=== PATIENT | female | born 1970 | race Caucasian/White ===

== ENCOUNTER 2017-07-03 12:26 | Inpatient (IN) | payer OTHER ==
[2017-07-03 13:20] VITALS: BMI 27.3
--- NOTE | 2017-07-03 15:03 | HP ---
COWS - Scale Resting Pulse: 0= [place] 80 or Below Sweatin=Flushed/Facial Moisture Restless Observation: 3= Extraneous Movement Pupil Size: 2= Moderately Dilated Bone or Joint Aches: 2= Severe Diffuse Aches Runny Nose/ Eye Tearin= Runny Nose/Eyes GI Upset > 30mins: 3= Vomiting/Diarrhea Tremor Observation: 2= Slight Tremor Visible Yawning Observation: 2= >3x During Session Anxiety or Irritability: 2=Irritable/Anxious Goose Flesh Skin: 0=Smooth Skin COWS Score: 20 CIWA Score - CIWA Score Nausea/Vomitin Muscle Tremors: 3 Anxiety: 3 Agitation: 3 Paroxysmal Sweats: 2 Orientation: 0-Oriented Tacttile Disturbances: 2-Mild Itch/Numbness/Burn Auditory Disturbances: 2-Mild Harshness/Frighten Visual Disturbances: 1-Very Mild Sensitivity Headache: 2-Mild CIWA-Ar Total Score: 21 Admission ROS S - HPI Chief Complaint: i need help to stop using heroin,alcohol and xanax,seeking detox, Allergies/Adverse Reactions: Allergies Allergy/AdvReac Type Severity Reaction Status Date / Time clonidine Allergy Severe Difficulty Verified 07/03/17 14:55 Breathing haloperidol [From Haldol] AdvReac Verified 07/03/17 14:55 History of Present Illness: this 46 years old female with heorin,alcohol and xanax dependence,last treatment [facility] in 02/25 seizure last 6months ago 12/26 syncope htn asthma longest period of sobriety 3 and half years Exam Limitations: No Limitations - Ebola screening Have you traveled outside of the country in the last 21 days: No Have you had contact with anyone from an Ebola affected area: No Have you been sick,other than usual withdrawal symptoms: No Do you have a fever: No - Review of Systems Constitutional: Chills, Diaphoresis, Loss of Appetite, Malaise, Night Sweats, Changes in sleep, Weakness EENT: reports: Tearing Respiratory: reports: No Symptoms reported (asthma) Cardiac: reports: Palpitations GI: reports: Diarrhea, Nausea, Vomiting, Abdominal cramping, Other (s/p lap checystecyomy incisional hernia) : reports: No Symptoms Reported Musculoskeletal: reports: Back Pain, Joint Pain, Muscle Pain, Joint Stiffness Integumentary: reports: Dryness Neuro: reports: Headache, Tremors Endocrine: reports: No Symptoms Reported Hematology: reports: No Symptoms Reported Psychiatric: reports: No Sypmtoms Reported, Judgement Intact, Mood/Affect Appropiate, Orientated x3, Depressed, other (bipolar disorder) Patient History - Patient Medical History Hx Anemia: Yes (not taking any meds) Hx Asthma: Yes (Pt is on MDI) Hx Chronic Obstructive Pulmonary Disease (COPD): No Hx Cancer: No Hx Cardiac Disorders: No Hx Congestive Heart Failure: No Hx Hypertension: Yes (on med) Hx Hypercholesterolemia: No Hx Pacemaker: No HX Cerebrovascular Accident: No Hx Seizures: Yes (xanax related in 12/26) Hx Dementia: No Hx Diabetes: No Hx Gastrointestinal Disorders: Yes (Hx of a bleeding ulcer.) Hx Liver Disease: No Hx Genitourinary Disorders: No Hx Sexually Transmitted Disorders: No Hx Renal Disease (ESRD): No Hx Thyroid Disease: No Hx Human Immunodeficiency Virus (HIV): No (negative,last 04/27) Hx Hepatitis C: Yes (diagnosed seven yrs ago,treated) Hx Depression: Yes Hx Suicide Attempt: Yes (attempted to cut wrist in 2012) Hx Bipolar Disorder: Yes (seroquel) Hx Schizophrenia: No Other Medical History: no suicidal,no homicidal - Patient Surgical History Past Surgical History: Yes Hx Cholecystectomy: Yes (removed 2007) Anesthesia Reaction: No - PPD History Previous Implant?: Yes Documented Results: Negative w/o proof Date: 07/03/15 PPD to be Administered?: Yes - Reproductive History Patient is a Female of Child Bearing Age (11 -55 yrs old): Yes Last Menstrual Period: 07/02/17 Patient : No - Smoking Cessation Smoking history: Current every day smoker Have you smoked in the past 12 months: Yes Aproximately how many cigarettes per day: 10 Hx Chewing Tobacco Use: No Initiated information on smoking cessation: Yes 'Breaking Loose' booklet given: 07/03/17 - Substance & Tx. History Hx Alcohol Use: Yes Hx Substance Use: Yes Substance Use Type: Alcohol, Heroin, Marijuana, Opiates Hx Substance Use Treatment: Yes (02/25 [facility]) - Substances Abused Heroin Route: Inhalation Frequency: Daily Amount used: 10 BAGS Age of first use: 28 Date of Last Use: 07/03/17 Alcohol Route: Oral Frequency: Daily Amount used: 2-3 PINTS VODKA Age of first use: 13 Date of Last Use: 07/03/17 Alprazolam (Xanax) Route: Oral Frequency: Daily Amount used: 2MG Age of first use: 15 Date of Last Use: 07/03/17 Marijuana/Hashish Route: Smoking Frequency: 1-3 times last 30 days Amount used: 1/2 JOINT Age of first use: 14 Date of Last Use: 06/26/17 Family Disease History - Family Disease History Family Disease History: Other: Father (--alcohol), Mother (-- alcohol/AIDS) Admission Physical Exam [facility] - Vital Signs Vital Signs: Vital Signs - 24 hr 07/03/17 13:17 Temperature 97.7 F Pulse Rate 75 Respiratory 18 Rate Blood Pressure 140/100 - Physical General Appearance: Yes: Moderate Distress, Tremorous, Irritable, Sweating, Anxious HEENTM: Yes: Normal ENT Inspection, GEOFF, Pharynx Normal Respiratory: Yes: Lungs Clear, Normal Breath Sounds, No Respiratory Distress Neck: Yes: Within Normal Limits, Supple, Trachea in good position Breast: Yes: Breast Exam Deferred Cardiology: Yes: Within Normal Limits, Regular Rhythm, Regular Rate, S1, S2 Abdominal: Yes: Within Normal Limits, Normal Bowel Sounds, Non Tender, Soft Genitourinary: Yes: Within Normal Limits Back: Yes: Normal Inspection, Muscle Spasm Musculoskeletal: Yes: full range of Motion, Back pain, Muscle Pain Extremities: Yes: Normal Inspection, Normal Range of Motion, Tremors Neurological: Yes: Within Normal Limits, Alert Integumentary: Yes: Dry Lymphatic: Yes: Within Normal Limits - Diagnostic (1) Opioid dependence with withdrawal Current Visit: No Status: Acute (2) Alcohol dependence with uncomplicated withdrawal Current Visit: No Status: Acute (3) Uncomplicated sedative, hypnotic or anxiolytic withdrawal Current Visit: Yes Status: Acute (4) Cocaine dependence Current Visit: Yes Status: Acute (5) Cannabis dependence Current Visit: No Status: Chronic (6) Hepatitis C Current Visit: No Status: Chronic (7) Hypertension Current Visit: No Status: Chronic (8) Seizure disorder Current Visit: No Status: Suspected (9) Low back pain Current Visit: Yes Status: Acute (10) Sciatica Current Visit: Yes Status: Acute (11) Syncope Current Visit: Yes Status: Acute (12) Post traumatic stress disorder (PTSD) Current Visit: No Status: Acute (13) Nicotine dependence Current Visit: No Status: Acute Cleared for Admission [facility] - Detox or Rehab [facility] Level of Care: Medically Managed Detox Regimen/Protocol: Methadone/Valium [facility] Breath Alcohol Content Breath Alcohol Content: 0 Urine Pregancy Test - Result Urine Test Results: Negative- NO Line Present Urine Drug Screen - Results Drug Screen Negative: No Urine Drug Screen Results: OPI-Opiates, BZO-Benzodiazepines
[2017-07-03] MEDS ORDERED: MENTHOL/PHENOL 1 EACH UD MM PRN (15:31)
[2017-07-03] MEDS ORDERED: IBUPROFEN 400 MG TABLET (FP) PO PRN (15:31)
[2017-07-03] MEDS ORDERED: MAGNESIUM HYDROX 2400MG/30ML ORAL SUSPENSION 30 ML CUP PO PRN (15:31)
[2017-07-03] MEDS ORDERED: guaiFENesin/D-METHORPHAN HB 10 ML UNIT-DOSE CUPS PO PRN (15:31)
[2017-07-03] MEDS ORDERED: MAG HYDROX/AL HYDROX/SIMETH 30 ML UNIT-DOSE CUP PO PRN (15:31)
[2017-07-03] MEDS ORDERED: ACETAMINOPHEN 325 MG TABLET (FP) PO PRN (15:31)
[2017-07-03] MEDS ORDERED: MAGNESIUM CITRATE 300 ML BOTTLE PO PRN (15:31)
[2017-07-03] MEDS ORDERED: P-EPHED 60MG/TRIPROLIDI 2.5MG TABLET PO PRN (15:31)
[2017-07-03] MEDS ORDERED: diphenhydrAMINE HCL 50 MG CAPSULE PO PRN (15:31)
[2017-07-03] MEDS ORDERED: LOPERAMIDE HCL 2 MG CAPSULE PO PRN (15:31)
[2017-07-03] MEDS ORDERED: ALBUTEROL SO4 18 GM HFA INHALER IH PRN (15:35)
[2017-07-03] MEDS ORDERED: diazePAM 5 MG TABLET PO ONE (15:39)
[2017-07-03] MEDS ORDERED: METHADONE HCL 10 MG TABLET (FOR DETOX USE ONLY) PO ONE ×2 (15:40→23:00)
[2017-07-03] MEDS: NICOTINE 21 MG/24 HOURS TOPICAL PATCH TD SCH (17:14)
[2017-07-03] MEDS: GABAPENTIN 400 MG CAPSULE (FP) PO SCH ×2 (17:14→22:34)
[2017-07-03] MEDS: diazePAM 5 MG TABLET PO SCH (22:34)
[2017-07-03] MEDS: THIAMINE HCL 100 MG TABLET (FP) PO SCH (22:34)
[2017-07-04] MEDS: diazePAM 5 MG TABLET PO SCH ×3 (06:01→22:50)
[2017-07-04] MEDS: GABAPENTIN 400 MG CAPSULE (FP) PO SCH ×3 (06:01→22:50)
[2017-07-04] MEDS ORDERED: METHADONE HCL 10 MG TABLET (FOR DETOX USE ONLY) PO SCH (10:00)
[2017-07-04 10:08] LABS: MCH 26.9 pg (25.7-33.7); MCHC 32.7 g/dl (32.0-36.0); MEAN CELL VOLUME 82.2 fl (80-96); MEAN PLT VOLUME 7.9 fl (7.5-11.1); PLATELET COUNT 214 K/MM3 (134-434); WHITE BLOOD COUNT 4.1 K/mm3 (4.0-10.0)
[2017-07-04 10:46] LABS: ALBUMIN 3.7 g/dl (3.4-5.0); ALK PHOS 71 U/L (45-117); ANION GAP 12 (8-16); BILIRUBIN,TOTAL 0.7 mg/dL (0.2-1.0); CALCIUM 8.6 mg/dL (8.5-10.1); CO2 23 mmol/L (21-32); CREATININE 0.7 mg/dL (0.55-1.02); GLUCOSE,RANDOM 98 mg/dL (74-106); SGOT/AST 18 U/L (15-37); SGPT/ALT 31 U/L (12-78); TOT PROT 7.5 g/dl (6.4-8.2)
--- NOTE | 2017-07-04 11:00 | PN ---
[facility] CIWA - CIWA Score Nausea/Vomitin-No Nausea/No Vomiting Muscle Tremors: 4-Moderate,w/Arms Extend Anxiety: 3 Agitation: 4-Moderately Restless Paroxysmal Sweats: 3 Orientation: 0-Oriented Tacttile Disturbances: 0-None Auditory Disturbances: 0-None Visual Disturbances: 0-None Headache: 1-Very Mild CIWA-Ar Total Score: 15 [facility] COWS - Scale Resting Pulse: 1= [place] 81-100 Sweatin=Flushed/Facial Moisture Restless Observation: 1= Difficult to Sit Still Pupil Size: 0= Normal to Room Light Bone or Joint Aches: 2= Severe Diffuse Aches Runny Nose/ Eye Tearin= Runny Nose/Eyes GI Upset > 30mins: 2= Nausea/Diarrhea Tremor Observation of Outstretched Hands: 2= Slight Tremor Visible Yawning Observation: 2= >3x During Session Anxiety or Irritability: 2=Irritable/Anxious Goose Flesh Skin: 3=Piloerection COWS Score: 19 S Progress Note (SOAP) Subjective: agitation anxiety sweats shakes interrupted sleep body aches irritable Objective: 07/04/17 10:59 Vital Signs Temperature 98.2 F 07/04/17 06:46 Pulse Rate 62 07/04/17 06:46 Respiratory Rate 16 07/04/17 06:46 Blood Pressure 131/90 07/04/17 06:46 O2 Sat by Pulse Oximetry (%) Laboratory Tests 07/04/17 07:00 WBC 4.1 RBC 5.16 Hgb 13.9 Hct 42.4 MCV 82.2 MCH 26.9 MCHC 32.7 RDW 16.0 H D Plt Count 214 MPV 7.9 labs pending aaox3 ambulating no acute distress Assessment: 07/04/17 10:59 withdrawal sx Plan: continue detox increase fluids
[2017-07-04] MEDS: PRENATAL VITAMINS W/ FOLIC ACID TABLET (FP) PO SCH (11:01)
[2017-07-04] MEDS: diazePAM 5 MG TABLET PO PRN ×2 (11:01→18:33)
[2017-07-04] MEDS: amLODIPine BESYLATE 10 MG TABLET (FP) PO SCH (11:01)
[2017-07-04] MEDS: NICOTINE 21 MG/24 HOURS TOPICAL PATCH TD SCH (11:03)
[2017-07-04 12:27] LABS: HIV 1 & 2 AB NEGATIVE; HIV 1 AGp24 NEGATIVE
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
--- NOTE | 2017-07-04 20:32 | EKG ---
Test Reason : Blood Pressure : / mmHG Vent. Rate : 063 BPM Atrial Rate : 063 BPM P-R Int : 166 ms QRS Dur : 084 ms QT Int : 390 ms P-R-T Axes : 042 071 060 degrees QTc Int : 399 ms NORMAL SINUS RHYTHM NORMAL ECG NO PREVIOUS ECGS AVAILABLE Confirmed by FRANKY OCONNOR MD ([id number]) on 07/04/2017 8:32:09 PM Referred By: Confirmed By:FRANKY OCONNOR MD
[2017-07-04] MEDS: THIAMINE HCL 100 MG TABLET (FP) PO SCH (22:50)
[2017-07-04] MEDS: QUEtiapine FUMARATE 100 MG TABLET (FP) PO SCH (22:50)
[2017-07-05] MEDS: GABAPENTIN 400 MG CAPSULE (FP) PO SCH ×3 (07:00→22:44)
--- NOTE | 2017-07-05 08:02 | PN ---
Psychiatric Progress Note Vital Signs: Vital Signs Period Temp Pulse Resp BP Sys/Gross Pulse Ox Last 24 Hr 97.6 F-98.8 F 60-86 16-18 112-149/74-95 Date of Session: 07/04/17 Chief Complaint:: Insomnia HPI: Patient reports insoknia, reports taking prior to admission: Ambien 10mg poqhs Current Medications: Active Medications Generic Name Dose Route Start Last Admin Trade Name Freq PRN Reason Stop Dose Admin Acetaminophen 650 mg 07/03/17 15:31 Tylenol - PO Q4H PRN FEVER OR PAIN Al Hydroxide/Mg Hydroxide 30 ml 07/03/17 15:31 Mylanta Oral Suspension - PO Q6H PRN DYSPEPSIA Albuterol Sulfate 2 puff 07/03/17 15:35 Ventolin Hfa Inhaler - IH Q4H PRN ASTHMA Amlodipine Besylate 10 mg 07/04/17 10:00 07/04/17 11:01 Norvasc - PO 10 mg DAILY HEAVENLY Administration Diazepam 10 mg 07/03/17 15:31 07/04/17 18:33 Valium - PO 07/06/17 15:31 10 mg Q4H PRN Administration WITHDRAWAL(CONT SUBST) Diazepam 5 mg 07/05/17 10:00 Valium - PO 07/06/17 22:01 BID HEAVENLY Diazepam 5 mg 07/07/17 10:00 Valium - PO 07/07/17 10:01 DAILY HEAVENLY Diphenhydramine HCl 50 mg 07/03/17 15:31 07/04/17 22:50 Benadryl - PO 50 mg HSMR1 PRN Administration INSOMNIA Escitalopram Oxalate 10 mg 07/05/17 10:00 Lexapro - PO DAILY HEAVENLY Eucalyptus/Menthol/Phenol/Sorbitol 1 each 07/03/17 15:31 Cepastat Lozenge - MM Q4H PRN SORE THROAT Gabapentin 400 mg 07/03/17 15:45 07/05/17 07:00 Neurontin - PO 400 mg TID HEAVENLY Administration Guaifenesin 10 ml 07/03/17 15:31 Robitussin Dm - PO Q6H PRN COUGH Hydroxyzine Pamoate 25 mg 07/03/17 15:31 Vistaril - PO Q4H PRN AGITATION Ibuprofen 400 mg 07/03/17 15:31 Motrin - PO Q6H PRN SEVERE PAIN Loperamide HCl 4 mg 07/03/17 15:31 Imodium - PO Q6H PRN DIARRHEA Magnesium Citrate 300 ml 07/03/17 15:31 Citroma - PO Q48H PRN CONSTIPATION Magnesium Hydroxide 30 ml 07/03/17 15:31 Milk Of Magnesia - PO DAILY PRN CONSTIPATION Methadone HCl 10 mg 07/07/17 10:00 Dolophine - PO 07/07/17 10:01 DAILY HEAVENLY Methadone HCl 15 mg 07/05/17 10:00 Dolophine - PO 07/06/17 10:01 DAILY HEAVENLY Methadone HCl 5 mg 07/08/17 06:00 Dolophine - PO 07/08/17 06:01 DAILY@0600 HEAVENLY Nicotine 21 mg 07/03/17 15:45 07/04/17 11:03 Nicoderm Patch - TD Not Given DAILY HEAVENLY Multivit/Folic Acid/Iron 1 tab 07/04/17 10:00 07/04/17 11:01 Vitamins (Sjr) - PO 1 tab DAILY HEAVENLY Administration Pseudoephedrine/Triprolidine 1 combo 07/03/17 15:31 Actifed - PO TID PRN NASAL CONGESTION Quetiapine Fumarate 100 mg 07/04/17 22:00 07/04/17 22:50 Seroquel - PO 100 mg HS HEAVENLY Administration Thiamine HCl 100 mg 07/03/17 22:00 07/04/17 22:50 Vitamin B1 - PO 100 mg HS HEAVENLY Administration Medication(s) Change(s): Ambien 10mg poqhs Mental Status Exam - Mental Status Exam Alert and Oriented to: Person Cognitive Function: Fair Patient Appearance: Unkempt Mood: Anxious Affect: Mood Congruent Patient Behavior: Cooperative Speech Pattern: Appropriate Voice Loudness: Mildly Soft/Quiet Thought Process: Goal Oriented Thought Disorder: Being Controlled Hallucinations: Denies Suicidal Ideation: Denies Homicidal Ideation: Denies Insight/Judgement: Fair Sleep: Difficulty falling asleep Muscle strength/Tone: Mild Hypotonicity Gait/Station: Shuffling Additional Comments: Ambien 10mg poqhs Psychiatric Treatment Plan - Problem List (1) Alcohol dependence with uncomplicated withdrawal Current Visit: Yes (2) Cannabis dependence Current Visit: Yes (3) Cocaine dependence Current Visit: Yes (4) Nicotine dependence Current Visit: Yes Qualifiers: Nicotine product type: cigarettes Substance use status: uncomplicated Qualified Code(s): F17.210 - Nicotine dependence, cigarettes, uncomplicated; F17.210 - Nicotine dependence, cigarettes, uncomplicated (5) Opioid dependence with withdrawal Current Visit: Yes (6) Substance induced mood disorder Current Visit: Yes (7) Bipolar disorder Current Visit: No (8) Opioid dependence in controlled environment Current Visit: No (9) Opioid type dependence, abuse Current Visit: No (10) Post traumatic stress disorder (PTSD) Current Visit: No Initial treatment plan: Ambien 10mg poqhs
[2017-07-05] MEDS ORDERED: TRIMETHOBENZAMIDE HCL 200MG/2ML INJ IM ONE (08:58)
[2017-07-05] MEDS ORDERED: TRIMETHOBENZAMIDE HCL 200MG/2ML INJ IM PRN (08:58)
[2017-07-05] MEDS: diazePAM 5 MG TABLET PO PRN ×2 (09:01→14:03)
[2017-07-05] MEDS: PRENATAL VITAMINS W/ FOLIC ACID TABLET (FP) PO SCH (10:56)
[2017-07-05] MEDS: ESCITALOPRAM OXALATE 10 MG TABLET (FP) PO SCH (10:57)
[2017-07-05] MEDS: diazePAM 5 MG TABLET PO SCH ×2 (10:57→22:44)
[2017-07-05] MEDS: amLODIPine BESYLATE 10 MG TABLET (FP) PO SCH (10:57)
[2017-07-05] MEDS: METHADONE HCL 5 MG TABLET (FOR DETOX USE ONLY) PO SCH (10:57)
[2017-07-05] MEDS: CYCLOBENZAPRINE HCL 10 MG TABLET (FP) PO PRN ×2 (11:00→22:46)
--- NOTE | 2017-07-05 11:06 | PN ---
[facility] CIWA - CIWA Score Nausea/Vomitin-No Nausea/No Vomiting Muscle Tremors: 4-Moderate,w/Arms Extend Anxiety: 3 Agitation: 4-Moderately Restless Paroxysmal Sweats: 3 Orientation: 0-Oriented Tacttile Disturbances: 0-None Auditory Disturbances: 0-None Visual Disturbances: 0-None Headache: 0-None Present CIWA-Ar Total Score: 14 S COWS - Scale Resting Pulse: 1= [place] 81-100 Sweatin=Flushed/Facial Moisture Restless Observation: 1= Difficult to Sit Still Pupil Size: 0= Normal to Room Light Bone or Joint Aches: 2= Severe Diffuse Aches Runny Nose/ Eye Tearin= Nasal Congestion GI Upset > 30mins: 1= Stomach Cramp Tremor Observation of Outstretched Hands: 2= Slight Tremor Visible Yawning Observation: 2= >3x During Session Anxiety or Irritability: 2=Irritable/Anxious Goose Flesh Skin: 3=Piloerection COWS Score: 17 S Progress Note (SOAP) Subjective: irritable agitation anxiety sweats body aches restless Objective: 07/05/17 11:05 Vital Signs Temperature 97.6 F 07/05/17 06:53 Pulse Rate 60 07/05/17 06:53 Respiratory Rate 16 07/05/17 06:53 Blood Pressure 115/77 07/05/17 06:53 O2 Sat by Pulse Oximetry (%) Laboratory Tests 07/03/17 07/04/17 07/04/17 07:00 07:00 07:00 WBC 4.1 RBC 5.16 Hgb 13.9 Hct 42.4 MCV 82.2 MCH 26.9 MCHC 32.7 RDW 16.0 H D Plt Count 214 MPV 7.9 Sodium 141 Potassium 3.8 Chloride 106 Carbon Dioxide 23 D Anion Gap 12 BUN 10 D Creatinine 0.7 D Creat Clearance w eGFR > 60 Random Glucose 98 Calcium 8.6 Total Bilirubin 0.7 D AST 18 D ALT 31 D Alkaline Phosphatase 71 D Total Protein 7.5 Albumin 3.7 RPR Titer HIV 1&2 Antibody Screen Negative HIV P24 Antigen Negative 07/04/17 07:00 WBC RBC Hgb Hct MCV MCH MCHC RDW Plt Count MPV Sodium Potassium Chloride Carbon Dioxide Anion Gap BUN Creatinine Creat Clearance w eGFR Random Glucose Calcium Total Bilirubin AST ALT Alkaline Phosphatase Total Protein Albumin RPR Titer Nonreactive HIV 1&2 Antibody Screen HIV P24 Antigen aaox3 ambulating no acute distress Assessment: 07/05/17 11:06 withdrawal sx Plan: continue detox increase fluids flexiril prn
[2017-07-05] MEDS: NICOTINE 21 MG/24 HOURS TOPICAL PATCH TD SCH (11:07)
[2017-07-05 13:26] LABS: URINE APPEARANCE CLOUDY; URINE BILIRUBIN NEGATIVE (NEGATIVE); URINE BLOOD 1+ (NEGATIVE); URINE COLOR AMBER; URINE GLUCOSE (UA) NEGATIVE (NEGATIVE); URINE KETONE TRACE (NEGATIVE); URINE NITRITE NEGATIVE (NEGATIVE); URINE UROBILINOGEN NEGATIVE mg/dL (0.2-1.0)
[2017-07-05 13:58] LABS: URINE PROTEIN 2+ (NEGATIVE)
[2017-07-05 14:01] LABS: URINE BACTERIA RARE /hpf (NONE SEEN); URINE MUCUS MANY; URINE RBC 7 /hpf (0-3); URINE WBC 11 /hpf (3-5)
[2017-07-05 16:49] LABS: URINE LEUK ESTERASE Negative (NEGATIVE)
[2017-07-05] MEDS: THIAMINE HCL 100 MG TABLET (FP) PO SCH (22:44)
[2017-07-05] MEDS: QUEtiapine FUMARATE 100 MG TABLET (FP) PO SCH (22:44)
[2017-07-06] MEDS: GABAPENTIN 400 MG CAPSULE (FP) PO SCH ×3 (06:29→23:21)
[2017-07-06] MEDS: METHADONE HCL 5 MG TABLET (FOR DETOX USE ONLY) PO SCH (11:04)
[2017-07-06] MEDS: amLODIPine BESYLATE 10 MG TABLET (FP) PO SCH (11:04)
[2017-07-06] MEDS: PRENATAL VITAMINS W/ FOLIC ACID TABLET (FP) PO SCH (11:04)
[2017-07-06] MEDS: ESCITALOPRAM OXALATE 10 MG TABLET (FP) PO SCH (11:04)
[2017-07-06] MEDS: diazePAM 5 MG TABLET PO SCH ×2 (11:04→23:21)
[2017-07-06] MEDS: NICOTINE 21 MG/24 HOURS TOPICAL PATCH TD SCH (11:05)
[2017-07-06] MEDS: CYCLOBENZAPRINE HCL 10 MG TABLET (FP) PO PRN ×3 (11:05→23:22)
[2017-07-06] MEDS: NICOTINE POLACRILEX 4 MG GUM BUC PRN (11:06)
--- NOTE | 2017-07-06 11:47 | PN ---
[facility] Progress Note (SOAP) Subjective: nausea interrupted sleep body aches heartburn Objective: 07/06/17 11:45 Vital Signs Temperature 96.7 F L 07/06/17 09:45 Pulse Rate 59 L 07/06/17 09:45 Respiratory Rate 18 07/06/17 09:45 Blood Pressure 116/80 07/06/17 09:45 O2 Sat by Pulse Oximetry (%) aaox3 ambulating no acute distress Assessment: 07/06/17 11:46 withdrawal sx Plan: continue detox protonix 40mg
[2017-07-06] MEDS: diazePAM 5 MG TABLET PO PRN (14:20)
[2017-07-06] MEDS: hydrOXYzine PAMOATE 25 MG CAPSULE (FP) PO PRN (17:21)
[2017-07-06] MEDS: ZOLPIDEM TARTRATE 10 MG TABLET (PARK CARE ONLY) PO PRN (23:21)
[2017-07-06] MEDS: THIAMINE HCL 100 MG TABLET (FP) PO SCH (23:21)
[2017-07-06] MEDS: QUEtiapine FUMARATE 100 MG TABLET (FP) PO SCH (23:24)
[2017-07-07] MEDS: GABAPENTIN 400 MG CAPSULE (FP) PO SCH ×3 (05:41→22:40)
[2017-07-07] MEDS ORDERED: diazePAM 5 MG TABLET PO SCH (10:00)
[2017-07-07] MEDS ORDERED: METHADONE HCL 10 MG TABLET (FOR DETOX USE ONLY) PO SCH (10:00)
[2017-07-07] MEDS: PRENATAL VITAMINS W/ FOLIC ACID TABLET (FP) PO SCH (10:59)
[2017-07-07] MEDS: ESCITALOPRAM OXALATE 10 MG TABLET (FP) PO SCH (11:00)
[2017-07-07] MEDS: LIDOCAINE 5% TOPICAL PATCH TP SCH (11:00)
[2017-07-07] MEDS: NICOTINE 21 MG/24 HOURS TOPICAL PATCH TD SCH (11:01)
[2017-07-07] MEDS: amLODIPine BESYLATE 10 MG TABLET (FP) PO SCH (11:01)
[2017-07-07] MEDS: hydrOXYzine PAMOATE 25 MG CAPSULE (FP) PO PRN (11:04)
--- NOTE | 2017-07-07 11:33 | PN ---
[facility] Progress Note (SOAP) Subjective: sweats, nausea, bodyaches , lbp Objective: 07/07/17 11:30 Vital Signs Temperature 96.9 F L 07/07/17 10:00 Pulse Rate 65 07/07/17 10:00 Respiratory Rate 17 07/07/17 10:00 Blood Pressure 117/65 07/07/17 10:00 O2 Sat by Pulse Oximetry (%) Laboratory Tests 07/03/17 07/04/17 07/04/17 07:00 07:00 07:00 WBC 4.1 RBC 5.16 Hgb 13.9 Hct 42.4 MCV 82.2 MCH 26.9 MCHC 32.7 RDW 16.0 H D Plt Count 214 MPV 7.9 Sodium 141 Potassium 3.8 Chloride 106 Carbon Dioxide 23 D Anion Gap 12 BUN 10 D Creatinine 0.7 D Creat Clearance w eGFR > 60 Random Glucose 98 Calcium 8.6 Total Bilirubin 0.7 D AST 18 D ALT 31 D Alkaline Phosphatase 71 D Total Protein 7.5 Albumin 3.7 Urine Color Urine Appearance Urine pH Ur Specific [place] Urine Protein Urine Glucose (UA) Urine Ketones Urine Blood Urine Nitrite Urine Bilirubin Urine Urobilinogen Ur Leukocyte Esterase Urine RBC Urine WBC Ur Epithelial Cells Urine Bacteria Urine Mucus RPR Titer HIV 1&2 Antibody Screen Negative HIV P24 Antigen Negative 07/04/17 07/05/17 07:00 11:50 WBC RBC Hgb Hct MCV MCH MCHC RDW Plt Count MPV Sodium Potassium Chloride Carbon Dioxide Anion Gap BUN Creatinine Creat Clearance w eGFR Random Glucose Calcium Total Bilirubin AST ALT Alkaline Phosphatase Total Protein Albumin Urine Color [place] Urine Appearance Cloudy Urine pH 6.0 Ur Specific [place] 1.025 Urine Protein 2+ H Urine Glucose (UA) Negative Urine Ketones Trace H Urine Blood 1+ H Urine Nitrite Negative Urine Bilirubin Negative Urine Urobilinogen Negative Ur Leukocyte Esterase Negative Urine RBC 7 Urine WBC 11 Ur Epithelial Cells Many Urine Bacteria Rare Urine Mucus Many RPR Titer Nonreactive HIV 1&2 Antibody Screen HIV P24 Antigen pt aox3 in nad ambulating 07/07/17 11:31 Assessment: 07/07/17 11:31 withdrawal sx's lbp plan continue detox increase fluids lidocaine patch q /d d/c in am . 07/07/17 11:31 07/07/17 11:32
[2017-07-07] MEDS: NICOTINE POLACRILEX 4 MG GUM BUC PRN (11:41)
[2017-07-07] MEDS: CYCLOBENZAPRINE HCL 10 MG TABLET (FP) PO PRN ×2 (14:48→22:41)
[2017-07-07] MEDS ORDERED: LIDOCAINE PATCH REMOVAL MC SCH (22:00)
[2017-07-07] MEDS: ZOLPIDEM TARTRATE 10 MG TABLET (PARK CARE ONLY) PO PRN (22:40)
[2017-07-07] MEDS: QUEtiapine FUMARATE 100 MG TABLET (FP) PO SCH (22:41)
[2017-07-07] MEDS: THIAMINE HCL 100 MG TABLET (FP) PO SCH (22:41)
[2017-07-08] MEDS ORDERED: METHADONE HCL 5 MG TABLET (FOR DETOX USE ONLY) PO SCH (06:00)
[2017-07-08] MEDS: GABAPENTIN 400 MG CAPSULE (FP) PO SCH (06:01)
[2017-07-08] MEDS: CYCLOBENZAPRINE HCL 10 MG TABLET (FP) PO PRN (06:01)
[2017-07-08 06:23] VITALS: BP 117/74; PULSE 57; TEMP 97.7
--- NOTE | 2017-07-08 08:47 | DS ---
[facility] Detox Discharge Summary Admission Date: 07/03/17 Discharge Date: 07/08/17 - History Present History: Alcohol Dependence, Cannabis Dependence, Cocaine Dependence, Opioid Dependence, Sedative Dependence Additional Comments: FOLLOW UP WITH AFTER CARE PROGRAM ARRANGEMENT Pertinent Past History: HYPERTENSION HEPATITIS C SEIZURE LOW BACK PAIN SCIATICA SYNCOPE - Physical Exam Results Vital Signs: Vital Signs Temperature 97.7 F 07/08/17 06:00 Pulse Rate 57 L 07/08/17 06:00 Respiratory Rate 18 07/08/17 06:00 Blood Pressure 117/74 07/08/17 06:00 O2 Sat by Pulse Oximetry (%) Pertinent Admission Physical Exam Findings: WITHDRAWAL SYMPTOM - Treatment Hospital Course: Detox Protocol Followed, Detoxed Safely, Responded well, Discharged Condition Good Patient has Accepted a Rehab Referral to: [facility] - Medication Discharge Medications: Ambulatory Orders Quetiapine Fumarate [Seroquel -] 400 mg PO HS 04/30/14 Albuterol Sulfate Inhaler - [Ventolin HFA Inhaler -] 2 inh PO Q4H PRN #1 canister 07/06/15 Amlodipine Besylate [Norvasc -] 10 mg PO DAILY 07/03/17 Escitalopram Oxalate [Lexapro -] 10 mg PO DAILY 07/03/17 Gabapentin [Neurontin -] 400 mg PO Q8H 07/03/17 Quetiapine Fumarate [Seroquel -] 100 mg PO DAILY 07/03/17 - Diagnosis (1) Opioid dependence with withdrawal Current Visit: Yes Status: Chronic (2) Alcohol dependence with uncomplicated withdrawal Current Visit: Yes Status: Chronic (3) Uncomplicated sedative, hypnotic or anxiolytic withdrawal Current Visit: Yes Status: Chronic (4) Cocaine dependence Current Visit: Yes Status: Chronic Qualifiers: Substance use status: uncomplicated Qualified Code(s): F14.20 - Cocaine dependence, uncomplicated; F14.20 - Cocaine dependence, uncomplicated; F14.20 - Cocaine dependence, uncomplicated (5) Cannabis dependence Current Visit: Yes Status: Chronic (6) Hepatitis C Current Visit: Yes Status: Chronic Qualifiers: Viral hepatitis chronicity: chronic Hepatic coma status: without hepatic coma Qualified Code(s): B18.2 - Chronic viral hepatitis C; B18.2 - Chronic viral hepatitis C; B18.2 - Chronic viral hepatitis C; B18.2 - Chronic viral hepatitis C (7) Hypertension Current Visit: Yes Status: Chronic Qualifiers: Hypertension type: essential hypertension Qualified Code(s): I10 - Essential (primary) hypertension; I10 - Essential (primary) hypertension; I10 - Essential (primary) hypertension (8) Seizure disorder Current Visit: Yes Status: Chronic (9) Low back pain Current Visit: Yes Status: Acute (10) Sciatica Current Visit: Yes Status: Acute (11) Syncope Current Visit: Yes Status: Acute (12) Post traumatic stress disorder (PTSD) Current Visit: No Status: Acute (13) Nicotine dependence Current Visit: Yes Status: Chronic Qualifiers: Nicotine product type: cigarettes Substance use status: uncomplicated Qualified Code(s): F17.210 - Nicotine dependence, cigarettes, uncomplicated; F17.210 - Nicotine dependence, cigarettes, uncomplicated - AMA Did Patient Leave Against Medical Advice: No
[2017-07-08] MEDS: LIDOCAINE 5% TOPICAL PATCH TP SCH (08:59)
[2017-07-08] MEDS: NICOTINE 21 MG/24 HOURS TOPICAL PATCH TD SCH (08:59)
[2017-07-08] MEDS: ESCITALOPRAM OXALATE 10 MG TABLET (FP) PO SCH (08:59)
[2017-07-08] MEDS: amLODIPine BESYLATE 10 MG TABLET (FP) PO SCH (08:59)
[2017-07-08] MEDS: PRENATAL VITAMINS W/ FOLIC ACID TABLET (FP) PO SCH (08:59)
== END 2017-07-08 09:01 | disposition home or self-care (01) | DRG 773 ==
LOC: YASAS 12:26 → Y6N 15:12
PROVIDERS: ADMIT Internal Medicine; ATTEND Internal Medicine
PROC: HZ2ZZZZ Detoxification Services for Substance Abuse Treatment (ICD-10-PCS; principal; 2017-07-03)
DX: F11.23 Opioid dependence with withdrawal (principal); F13.230 Sedative, hypnotic or anxiolytic dependence with withdrawal, uncomplicated; F10.230 Alcohol dependence with withdrawal, uncomplicated; F14.20 Cocaine dependence, uncomplicated; F12.20 Cannabis dependence, uncomplicated; F17.210 Nicotine dependence, cigarettes, uncomplicated; F31.9 Bipolar disorder, unspecified; F43.10 Post-traumatic stress disorder, unspecified; F19.24 Other psychoactive substance dependence with psychoactive substance-induced mood disorder; I10 Essential (primary) hypertension; M54.30 Sciatica, unspecified side; R55 Syncope and collapse; B18.2 Chronic viral hepatitis C; Z86.69 Personal history of other diseases of the nervous system and sense organs
CPT/HCPCS: 36415; 80053; 81003; 81015; 85027; 86593; 87389; 93005; 93010